=== PATIENT | female | born 1995 | race Caucasian/White ===

== ENCOUNTER 2016-12-13 09:39 | Emergency (ER) | payer BC, OTHER ==
--- NOTE | 2016-12-13 10:08 | EDPHY ---
H & P Stated Complaint: 1 month abd pain/seen [facility] 2 weeks ago/negative eval Time Seen by Provider: 12/13/16 09:53 HPI/ROS: CHIEF COMPLAINT: Suprapubic pain x1 month HISTORY OF PRESENT ILLNESS: 21-year-old female history of IUD insertion in 2014 , history of menstrual cramping, start her menstrual period 1 month ago noted to have prolonged vaginal bleeding and prolonged menstrual cramping. Subsequently saw her OBGYN at the [facility], had a pelvic examination which was unremarkable, was able to visualize the IUD strings, was told that if symptoms continue to have an ultrasound. Her symptoms continue, she is in the ER to have ultrasound performed. She complains of continued intermittent suprapubic cramping. Denies: Dyspareunia, abnormal vaginal bleeding or discharge, history of STD, history of PID, urinary abnormality, bowel movement abnormality, trauma, rash, radiation of pain, nausea, vomiting, melena, hematochezia. REVIEW OF SYSTEMS: [A ten point review of systems was performed and is negative with the exception of the items mentioned in the HPI] [PAST MEDICAL & SURGICAL HISTORY:] IUD 2014. No history of abdominal surgeries SOCIAL HISTORY:[nonsmoker ] PHYSICAL EXAM (Prior to examination, patient consented to physical exam, hands were washed and my usual and customary physical exam procedures followed) 1) GENERAL: [Well-developed, well-nourished, alert and oriented. Appears to be in no acute distress.Smiling, shakes my hand appears quite well] 2) HEAD: [Normocephalic, atraumatic] 3) HEENT: [Pupils equal, round, reactive to light bilaterally. Sclera anicteric. ] 4) NECK: [Full range of motion, no meningeal signs.] 5) LUNGS: [Clear auscultation bilaterally, no wheezes, no rhonchi, no retractions.] 6) HEART: [Regular rate and rhythm, no murmur, no heave, no gallop.] 7) ABDOMEN: [No guarding, no rebound, tender to palpation suprapubic region only , , negative McBurney's, negative Deal's, negative Rovsing's, negative peritoneal sign], 8) MUSCULOSKELETAL: [Moving all extremities, no focal areas of tenderness, no obvious trauma. No peripheral edema or discoloration.] 9) BACK: [No CVA tenderness, no midline vertebral tenderness, no fluctuance, no step-off, no obvious trauma, no visual or palpable abnormality.] 10) SKIN: [No rash, no petechiae.] DIFFERENTIAL DIAGNOSIS: My differential diagnosis includes, but is not limited to, acute appendicitis, acute cholecystitis, bowel obstruction, acute pancreatitis, ovarian torsion, ectopic , gastritis and urinary tract infection. The patient understands that this diagnosis is provisional and can never be 100% accurate. This is a partial list of diagnoses considered. These considerations are based on history, physical exam, past history and reassessment. - Personal History LMP (Females 10-55): IUD In Place Current Tetanus/Diphtheria Vaccine: Yes - Medical/Surgical History Hx Asthma: No Hx Chronic Respiratory Disease: No Hx Diabetes: No Hx Cardiac Disease: No Hx Renal Disease: No Hx Cirrhosis: No Hx Alcoholism: No Hx HIV/AIDS: No Hx Splenectomy or Spleen Trauma: No Other PMH: denies - Social History Smoking Status: Never smoked Constitutional: Initial Vital Signs Temperature (C) 36.8 C 12/13/16 09:47 Heart Rate 81 12/13/16 09:47 Respiratory Rate 17 12/13/16 09:47 Blood Pressure 134/84 H 12/13/16 09:47 O2 Sat (%) 94 12/13/16 09:47 O2 Delivery Mode Room Air Allergies/Adverse Reactions: cephalexin [From Keflex] Allergy (Verified 12/13/16 09:46) sulfamethoxazole [From Septra] Allergy (Verified 12/13/16 09:46) trimethoprim [From Septra] Allergy (Verified 12/13/16 09:46) Home Medications: Medication Instructions Recorded Hydrocodone/APAP 5/325 [[place] 1 tab PO Q6 PRN #10 tab 12/13/16 5/325 (RX)] Medical Decision Making - Diagnostics Imaging: Ultrasound Pelvis Complete (Transabdominal and Endovaginal), with duplex Doppler analysis, History: Pain, possible ovarian cyst. LMP: end october, IUD x2 years Technique: Transabdominal and endovaginal ultrasound images were obtained. Endovaginal images obtained for better evaluation of the uterine myometrium and adnexa. Duplex doppler is used to evaluate the ovarian bloodflow. Findings: The IUD is in normal position within the uterus. The uterus is normal in size. No masses are present. The uterus measures 7.6 x 4.7 x 3.6 cm. The endometrial measures 5 mm in thickness. The ovaries are normal in size. The right ovary measures 3.5 x 3.2 x 2.9 cm = 17 mL. There is a 2.6 x 2.3 x 2.2 cm simple cyst in the right ovary. The left ovary measures 3.8 x 2.5 x 2.3 cm = 11 mL. There is a 2.8 x 2.5 x 2.1 cm simple cyst in the left ovary. No adnexal masses. No free fluid is identified in the pelvis. Color and pulsed duplex doppler flow is identified in both ovaries . Resistive index = 0.55 on the right and 0.62 on the left. Impression: 1. Bilateral simple cysts. No free fluid to indicate leaking. 2. IUD in good position. Dictated By: Esteban Yin MD Images reviewed by myself ED Course/Re-evaluation: 12:45 p.m.: Re-evaluation. Discussed with the patient her diagnostic studies including ultrasound showing an IUD in good position, bilateral simple ovarian cyst. No McBurney's point pain or peritoneal sign on re-evaluation. I think that acute appendicitis, acute diverticulitis, ectopic , less than likely in this patient. I do not think that further imaging indicated from the emergency department. Recommend she follow up with her primary care provider on Friday (today is Friday). In the meantime she has been given usual and customary abdominal precautions instructions and feels comfortable being discharged home. - Data Points Laboratory Results: Laboratory Results 12/13/16 10:06 12/13/16 10:06 12/13/16 12/13/16 12/13/16 11:40 10:06 10:06 WBC RBC Hgb Hct MCV MCH MCHC RDW Plt Count MPV Neut % (Auto) Lymph % (Auto) Karnes % (Auto) Eos % (Auto) Baso % (Auto) Nucleat RBC Rel Count Absolute Neuts (auto) Absolute Lymphs (auto) Absolute Monos (auto) Absolute Eos (auto) Absolute Basos (auto) Absolute Nucleated RBC Immature Gran % Immature Gran # Sodium 140 mEq/L mEq/L (134-144) Potassium 4.0 mEq/L mEq/L (3.5-5.2) Chloride 107 mEq/L mEq/L (97-110) Carbon Dioxide 22 mEq/l mEq/l (22-31) Anion Gap 11 mEq/L mEq/L (8-16) BUN 9 mg/dL mg/dL (7-23) Creatinine 0.7 mg/dL mg/dL (0.6-1.0) Estimated GFR > 60 Glucose 90 mg/dL mg/dL (70-100) Calcium 9.6 mg/dL mg/dL (8.5-10.4) Total Bilirubin 0.7 mg/dL mg/dL (0.1-1.4) Conjugated Bilirubin 0.4 mg/dL mg/dL (0.0-0.5) Unconjugated Bilirubin 0.3 mg/dL mg/dL (0.0-1.1) AST 17 IU/L IU/L (14-46) ALT 30 IU/L IU/L (9-52) Alkaline Phosphatase 95 IU/L IU/L (38-126) Total Protein 7.4 g/dL g/dL (6.3-8.2) Albumin 4.4 g/dL g/dL (3.5-5.0) Lipase 80.0 IU/L IU/L (23-300) Beta HCG, Qual NEGATIVE Urine Color PALE YELLOW Urine Appearance CLEAR Urine pH 7.0 (5.0-7.5) Ur Specific [place] 1.009 (1.002-1.030) Urine Protein NEGATIVE (NEGATIVE) Urine Ketones NEGATIVE (NEGATIVE) Urine Blood NEGATIVE (NEGATIVE) Urine Nitrate NEGATIVE (NEGATIVE) Urine Bilirubin NEGATIVE (NEGATIVE) Urine Urobilinogen NEGATIVE EU EU (0.2-1.0) Ur Leukocyte Esterase NEGATIVE (NEGATIVE) Urine RBC 1-3 /hpf /hpf (0-3) Urine WBC 1-3 /hpf /hpf (0-3) Ur Epithelial Cells TRACE /lpf /lpf (NONE-1+) Urine Bacteria 1+ /hpf H /hpf (NONE SEEN) Urine Mucus TRACE /lpf /lpf (NONE-1+) Urine Glucose NEGATIVE (NEGATIVE) 12/13/16 10:06 WBC 8.71 10^3/uL 10^3/uL (3.80-9.50) RBC 5.25 10^6/uL 10^6/uL (4.18-5.33) Hgb 13.3 g/dL g/dL (12.6-16.3) Hct 40.5 % % (38.0-47.0) MCV 77.1 fL L fL (81.5-99.8) MCH 25.3 pg L pg (27.9-34.1) MCHC 32.8 g/dL g/dL (32.4-36.7) RDW 14.6 % % (11.5-15.2) Plt Count 378 10^3/uL 10^3/uL (150-400) MPV 10.6 fL fL (8.7-11.7) Neut % (Auto) 61.3 % % (39.3-74.2) Lymph % (Auto) 26.5 % % (15.0-45.0) Karnes % (Auto) 4.8 % % (4.5-13.0) Eos % (Auto) 6.5 % % (0.6-7.6) Baso % (Auto) 0.7 % % (0.3-1.7) Nucleat RBC Rel Count 0.0 % % (0.0-0.2) Absolute Neuts (auto) 5.33 10^3/uL 10^3/uL (1.70-6.50) Absolute Lymphs (auto) 2.31 10^3/uL 10^3/uL (1.00-3.00) Absolute Monos (auto) 0.42 10^3/uL 10^3/uL (0.30-0.80) Absolute Eos (auto) 0.57 10^3/uL H 10^3/uL (0.03-0.40) Absolute Basos (auto) 0.06 10^3/uL 10^3/uL (0.02-0.10) Absolute Nucleated RBC 0.00 10^3/uL 10^3/uL (0-0.01) Immature Gran % 0.2 % % (0.0-1.1) Immature Gran # 0.02 10^3/uL 10^3/uL (0.00-0.10) Sodium Potassium Chloride Carbon Dioxide Anion Gap BUN Creatinine Estimated GFR Glucose Calcium Total Bilirubin Conjugated Bilirubin Unconjugated Bilirubin AST ALT Alkaline Phosphatase Total Protein Albumin Lipase Beta HCG, Qual Urine Color Urine Appearance Urine pH Ur Specific [place] Urine Protein Urine Ketones Urine Blood Urine Nitrate Urine Bilirubin Urine Urobilinogen Ur Leukocyte Esterase Urine RBC Urine WBC Ur Epithelial Cells Urine Bacteria Urine Mucus Urine Glucose Departure - Departure Disposition: Home, Routine, Self-Care Clinical Impression: Ovarian cyst Qualifiers: Laterality: bilateral Qualified Code(s): N83.201 - Unspecified ovarian cyst, right side Condition: Good Instructions: Ovarian Cyst (ED) Additional Instructions: Seek immediate medical attention if you develop new or worsening symptoms, if you develop fevers, chills, inability to tolerate oral intake or any other symptoms that concerns you. Referrals: SUSANA KIRAN [Other] - 1-2 days without fail Prescriptions: Hydrocodone/APAP 5/325 [[place] 5/325 (RX)] 1 tab PO Q6 PRN #10 tab PRN Reason: Pain, Severe
[2016-12-13 10:15] LABS: % IMMATURE GRANULYOCYTES 0.2 % (0.0-1.1); ABSOLUTE IMMATURE GRANULOCYTES 0.02 10^3/uL (0.00-0.10); ADD DIFF? NO; ADD MORPH? NO; ADD SCAN? NO; ATYPICAL LYMPHOCYTE FLAG 0 (0-99); FRAGMENT RBC FLAG 0 (0-99); HEMATOCRIT 40.5 % (38.0-47.0); HEMOGLOBIN 13.3 g/dL (12.6-16.3); LEFT SHIFT FLG 0 (0-99); LIPEMIA HEMOLYSIS FLAG 80 (0-99); MEAN CELL HEMOGLOBIN 25.3 pg (27.9-34.1); MEAN CELL HEMOGLOBIN CONCENTR. 32.8 g/dL (32.4-36.7); MEAN CELL VOLUME 77.1 fL (81.5-99.8); MEAN PLATELET VOLUME 10.6 fL (8.7-11.7); PLATELET CLUMPS FLAG 10 (0-99); PLATELET COUNT 378 10^3/uL (150-400); RED BLOOD CELL COUNT 5.25 10^6/uL (4.18-5.33); RED CELL DISTRIBUTION WIDTH 14.6 % (11.5-15.2)
[2016-12-13 10:36] LABS: ALANINE AMINOTRANSFERASE 30 IU/L (9-52); ALBUMIN 4.4 g/dL (3.5-5.0); ALKALINE PHOSPHATASE 95 IU/L (38-126); ASPARTATE AMINOTRANSFERASE 17 IU/L (14-46); BILIRUBIN,TOTAL 0.7 mg/dL (0.1-1.4); BILIRUBIN-CONJUGATED 0.4 mg/dL (0.0-0.5); BILIRUBIN-UNCONJUGATED 0.3 mg/dL (0.0-1.1); CALCIUM 9.6 mg/dL (8.5-10.4); CARBON DIOXIDE 22 mEq/l (22-31); CHLORIDE 107 mEq/L (97-110); CREATININE 0.7 mg/dL (0.6-1.0); GLOMERULAR FILTRATION RATE > 60; GLUCOSE 90 mg/dL (70-100); SODIUM 140 mEq/L (134-144); TOTAL PROTEIN 7.4 g/dL (6.3-8.2)
[2016-12-13 10:56] LABS: ANION GAP 11 mEq/L (8-16)
[2016-12-13 11:43] VITALS: RESP 16
[2016-12-13 11:49] LABS: COLOR PALE YELLOW; LEUKOCYTE ESTERASE,URINE NEGATIVE (NEGATIVE); NITRITE,URINE NEGATIVE (NEGATIVE)
[2016-12-13 11:55] LABS: BACTERIA 1+ /hpf (NONE SEEN); MUCUS TRACE /lpf (NONE-1+)
[2016-12-13 13:24] VITALS: BP 113/94; PULSE 71; TEMP 97.5; O2SAT 98
== END 2016-12-13 13:23 | disposition home or self-care (01) ==
DX: N83.201 Unspecified ovarian cyst, right side (principal)

== ENCOUNTER → 2018-02-06 | Outpatient (CLI) | payer OTHER | LOC: FIMAGING 09:13 | PROVIDERS: ATTEND Physician Assistant Medical | DX: N63.13 Unspecified lump in the right breast, lower outer quadrant (principal); R92.8 Other abnormal and inconclusive findings on diagnostic imaging of breast ==